=== PATIENT | male | born 1945 | race Caucasian/White ===

== ENCOUNTER 2022-02-18 14:15 | Outpatient (RCR) | payer MEDICARE, BC, SELFPAY ==
--- NOTE | 2021-10-18 15:12 | ONC.NURNOTE ---
Coordination of Care with Rad Onc Dr Teresa at 10/29 @1430 following first XRT appt at 1345 Week #1 weekly cisplat planned to start 10/30/21 patient called with appointments and called to Rad Onc/Karen Bedolla will request Dr Teresa to write orders on 10/22/21
--- NOTE | 2021-10-23 14:53 | URNOTE ---
Received request for prior auth for Cisplatin ([id number]), Fosaprepitant ([id number]) and Aloxi ([id number]). Pt has Medicare and FEP supplement. Prior auth is not required as services are based on medical necessity and follow medicare guidelines.
[2021-10-30 10:12] VITALS: BP 118/74; PULSE 64; RESP 16; TEMP 36.4; O2SAT 96
[2021-10-30 10:26] LABS: Basophils Absolute Auto 0.03 K/uL (0.00-0.30); Basophils Percent Auto 0.3 % (0.0-3.0); Eosinophils Percent Auto 3.1 % (0.0-7.0); Hematocrit 40.7 % (37.0-53.0); Immature Granulocytes Abs Auto 0.03 K/uL (0.00-0.30); Lymphocytes Percent Auto 11.1 % (20-44); Mean Corpuscular HGB Conc 32 gm/dL (32-36); Mean Corpuscular Hemoglobin 28 pg (26-34); Mean Corpuscular Volume 88 fL (80-100); Monocytes Percent Auto 13.4 % (0.0-11.0); Neutrophils Absolute Auto 7.06 K/uL (1.7-7.0); Neutrophils Percent Auto 71.8 % (42.0-72.0); Platelet Count* 380 K/uL (140-440); RDW Coefficient of Variation % 14.7 % (11.5-15.5); Red Blood Count 4.61 m/uL (4.30-5.90); White Blood Count* 9.83 K/uL (4.50-11.00)
[2021-10-30 10:31] LABS: Slide Review Reflex No
[2021-10-30 10:59] LABS: Albumin* 3.9 g/dL (3.3-5.0)
[2021-10-30 11:00] LABS: Chloride* 98 mmol/L (96-114); Potassium* 4.8 mmol/L (3.6-5.1); Sodium* 136 mmol/L (135-149)
[2021-10-30 11:02] LABS: Alanine Aminotransferase* 21 U/L (4-50); Alkaline Phosphatase* 118 U/L (40-150); Aspartate Amino Transferase* 24 U/L (12-35); Bilirubin Total* 0.3 mg/dL (0.1-1.5); Blood Urea Nitrogen* 24 mg/dL (7-30); Carbon Dioxide* 30 mmol/L (20-32); Creatinine* 1.2 mg/dL (0.5-1.5); Estimated Glomerular Filt Rate 62 ml/min; Glucose* 121 mg/dL (60-115); Magnesium* 1.9 mg/dL (1.5-2.6); Total Protein* 6.9 g/dL (6.0-8.3)
[2021-10-30 11:03] LABS: Calcium* 8.9 mg/dL (8.4-10.6)
[2021-10-30] MEDS: PALONOSETRON 0.25 MG/5 ML inj IV (12:21)
[2021-10-30] MEDS: FOSAPREPITANT 150 MG inj 150 MG in 0.9 % SODIUM CHLORIDE 250 ml 250 ML 510 MG IVPB (12:21)
[2021-10-30] MEDS: dexAMETHasone 10 MG in 0.9 % SODIUM CHLORIDE 100 ml 100 ML 404 MG IVPB (13:01)
--- NOTE | 2021-10-31 08:39 | ONC.NURNOTE ---
Called patient day after 1st chemo. He is feeling well; he is taking his antiemetics on schedule. He notes he was tired yesterday and got some sleep, and then was up in the night but is feeling well today. Reviewed to continue antiemetic schedule and anticipate fatigue as steroids wear off; pt agreeable to this.
[2021-11-06 09:25] VITALS: BP 124/77; PULSE 64; RESP 16; TEMP 36.2; O2SAT 99
[2021-11-06 09:25] LABS: Basophils Percent Auto 0.2 % (0.0-3.0); Eosinophils Percent Auto 2.8 % (0.0-7.0); Hematocrit 40.8 % (37.0-53.0); Hemoglobin* 13.2 gm/dL (13.5-17.5); Immature Granulocytes Abs Auto 0.07 K/uL (0.00-0.30); Lymphocytes Percent Auto 6.3 % (20-44); Mean Corpuscular HGB Conc 32 gm/dL (32-36); Mean Corpuscular Hemoglobin 28 pg (26-34); Mean Corpuscular Volume 86 fL (80-100); Monocytes Percent Auto 11.4 % (0.0-11.0); Neutrophils Percent Auto 78.7 % (42.0-72.0); Platelet Count* 317 K/uL (140-440); RDW Coefficient of Variation % 14.4 % (11.5-15.5); Red Blood Count 4.72 m/uL (4.30-5.90); White Blood Count* 12.68 K/uL (4.50-11.00)
[2021-11-06 09:34] LABS: Slide Review Reflex No
[2021-11-06 09:48] LABS: Albumin* 3.9 g/dL (3.3-5.0); Chloride* 97 mmol/L (96-114); Potassium* 4.1 mmol/L (3.6-5.1); Sodium* 134 mmol/L (135-149)
[2021-11-06 09:50] LABS: Creatinine* 1.1 mg/dL (0.5-1.5); Estimated Glomerular Filt Rate 69 ml/min
[2021-11-06 09:51] LABS: Alanine Aminotransferase* 19 U/L (4-50); Alkaline Phosphatase* 103 U/L (40-150); Aspartate Amino Transferase* 21 U/L (12-35); Bilirubin Total* 0.3 mg/dL (0.1-1.5); Blood Urea Nitrogen* 19 mg/dL (7-30); Carbon Dioxide* 29 mmol/L (20-32); Glucose* 138 mg/dL (60-115); Total Protein* 6.8 g/dL (6.0-8.3)
[2021-11-06 09:52] LABS: Calcium* 8.8 mg/dL (8.4-10.6)
[2021-11-06] MEDS: 0.9 % SODIUM CHLORIDE 1000 ml 1,000 ML 500 ML IV (10:51)
[2021-11-06] MEDS: PALONOSETRON 0.25 MG/5 ML inj IV (11:37)
[2021-11-06] MEDS: dexAMETHasone 10 MG in 0.9 % SODIUM CHLORIDE 100 ml 100 ML 404 MG IVPB (11:37)
[2021-11-06] MEDS: FOSAPREPITANT 150 MG inj 150 MG in 0.9 % SODIUM CHLORIDE 250 ml 250 ML 510 MG IVPB (11:58)
[2021-11-13 11:07] LABS: Basophils Absolute Auto 0.02 K/uL (0.00-0.30); Basophils Percent Auto 0.2 % (0.0-3.0); Eosinophils Absolute Auto 0.22 K/uL (0.00-0.50); Eosinophils Percent Auto 2.2 % (0.0-7.0); Hematocrit 41.6 % (37.0-53.0); Hemoglobin* 13.6 gm/dL (13.5-17.5); Immature Granulocytes Abs Auto 0.03 K/uL (0.00-0.30); Lymphocytes Percent Auto 7.1 % (20-44); Mean Corpuscular HGB Conc 33 gm/dL (32-36); Mean Corpuscular Hemoglobin 28 pg (26-34); Mean Corpuscular Volume 85 fL (80-100); Monocytes Percent Auto 15.6 % (0.0-11.0); Neutrophils Percent Auto 74.6 % (42.0-72.0); Platelet Count* 213 K/uL (140-440); RDW Coefficient of Variation % 14.7 % (11.5-15.5); Red Blood Count 4.91 m/uL (4.30-5.90); White Blood Count* 9.95 K/uL (4.50-11.00)
[2021-11-13 11:10] LABS: Slide Review Reflex No
[2021-11-13 11:12] VITALS: BP 116/72; PULSE 82; RESP 16; TEMP 36.4; O2SAT 97
[2021-11-13 11:22] LABS: Chloride* 95 mmol/L (96-114)
[2021-11-13 11:23] LABS: Albumin* 3.8 g/dL (3.3-5.0); Potassium* 4.1 mmol/L (3.6-5.1); Sodium* 131 mmol/L (135-149)
[2021-11-13 11:26] LABS: Alanine Aminotransferase* 31 U/L (4-50); Alkaline Phosphatase* 121 U/L (40-150); Aspartate Amino Transferase* 29 U/L (12-35); Bilirubin Total* 0.5 mg/dL (0.1-1.5); Blood Urea Nitrogen* 21 mg/dL (7-30); Calcium* 8.7 mg/dL (8.4-10.6); Carbon Dioxide* 30 mmol/L (20-32); Creatinine* 1.1 mg/dL (0.5-1.5); Estimated Glomerular Filt Rate 69 ml/min; Glucose* 129 mg/dL (60-115); Total Protein* 6.5 g/dL (6.0-8.3)
[2021-11-13 11:27] LABS: Magnesium* 1.5 mg/dL (1.5-2.6)
[2021-11-13 12:16] LABS: Appearance Urine Clear (Clear); Bilirubin Urine Negative (Negative); Blood Urine Negative (Negative); Color Urine Yellow (Yellow); Glucose Urine Negative (Negative); Ketones Urine Negative (Negative); Leukocyte Esterase Urine 1+ (Negative); Nitrite Urine Negative (Negative); Protein Urine Negative (Negative); Specific Gravity Urine >= 1.030 (1.000-1.030); Urobilinogen Urine 0.2 (0.2-1.0)
[2021-11-13 12:31] LABS: RBC Urine 0-2 (0-2)
[2021-11-13 12:32] LABS: Bacteria Urine Few; Squamous Epithelial Cell Urine Few (None-Few)
[2021-11-13] MEDS: PALONOSETRON 0.25 MG/5 ML inj IV (13:22)
[2021-11-13] MEDS: dexAMETHasone 10 MG in 0.9 % SODIUM CHLORIDE 100 ml 100 ML 404 MG IVPB (13:22)
[2021-11-13] MEDS: FOSAPREPITANT 150 MG inj 150 MG in 0.9 % SODIUM CHLORIDE 250 ml 250 ML 510 MG IVPB (13:44)
--- NOTE | 2021-11-13 14:14 | ONC.NURNOTE ---
Patient's magnesium trending downward, given replacement in IVF with cisplatin today. Also printed information on magnesium rich foods education from the [facility]. Education also talks about early signs of deficiency, and worsening symptoms. Patient knows to contact office if these symptoms start to occur.
[2021-11-19 10:48] LABS: Basophils Absolute Auto 0.03 K/uL (0.00-0.30); Basophils Percent Auto 0.4 % (0.0-3.0); Eosinophils Absolute Auto 0.15 K/uL (0.00-0.50); Eosinophils Percent Auto 1.8 % (0.0-7.0); Hematocrit 40.5 % (37.0-53.0); Hemoglobin* 13.4 gm/dL (13.5-17.5); Immature Granulocytes Abs Auto 0.03 K/uL (0.00-0.30); Lymphocytes Percent Auto 10.6 % (20-44); Mean Corpuscular HGB Conc 33 gm/dL (32-36); Mean Corpuscular Hemoglobin 28 pg (26-34); Mean Corpuscular Volume 84 fL (80-100); Monocytes Percent Auto 19.3 % (0.0-11.0); Neutrophils Absolute Auto 5.73 K/uL (1.7-7.0); Neutrophils Percent Auto 67.5 % (42.0-72.0); Platelet Count* 181 K/uL (140-440); RDW Coefficient of Variation % 14.8 % (11.5-15.5); Red Blood Count 4.82 m/uL (4.30-5.90); White Blood Count* 8.48 K/uL (4.50-11.00)
[2021-11-19 11:17] LABS: Albumin* 3.5 g/dL (3.3-5.0); Chloride* 93 mmol/L (96-114); Potassium* 4.6 mmol/L (3.6-5.1); Sodium* 129 mmol/L (135-149)
[2021-11-19 11:19] LABS: Bilirubin Total* 0.4 mg/dL (0.1-1.5); Carbon Dioxide* 31 mmol/L (20-32); Creatinine* 1.4 mg/dL (0.5-1.5); Estimated Glomerular Filt Rate 52 ml/min
[2021-11-19 11:20] LABS: Alanine Aminotransferase* 33 U/L (4-50); Alkaline Phosphatase* 122 U/L (40-150); Aspartate Amino Transferase* 36 U/L (12-35); Blood Urea Nitrogen* 22 mg/dL (7-30); Calcium* 8.5 mg/dL (8.4-10.6); Glucose* 161 mg/dL (60-115); Total Protein* 6.2 g/dL (6.0-8.3)
[2021-11-19 11:21] LABS: Slide Review Reflex No
[2021-11-20 10:32] VITALS: BP 102/69; PULSE 88; RESP 16; TEMP 36.4; O2SAT 98
[2021-11-20 10:47] LABS: Magnesium* 1.5 mg/dL (1.5-2.6)
--- NOTE | 2021-11-20 12:02 | ONC.NURNOTE ---
Received call from Sulma ARRIAGA from radiation oncology. Pt started on Flomax last evening for nocturia, this am pt lightheadedness with lower Bp. Not orthostatic per radiation. Pt also continues to have burning with urination and Radiation oncology are added on an additional 2 days of cipro for pt. Lineman called and spoke to Dr. Teresa to discuss if okay to treat with Cisplatin today with ongoing symptoms of UTI and being on Cipro. Pt's creatinine also 1.4. Per Dr. Teresa okay to treat with Cisplatin today, encourage fluids, pt to return on to recheck Creatinine and possible fluids. Dr. Teresa did not want to change the Emend dose with pt being on cipro.
[2021-11-20] MEDS: dexAMETHasone 10 MG in 0.9 % SODIUM CHLORIDE 100 ml 100 ML 404 MG IVPB (12:28)
[2021-11-20] MEDS: SODIUM CHLORIDE 0.9 % (FLUSH) 10 ML SYRINGE IVF (12:33)
[2021-11-20] MEDS: PALONOSETRON 0.25 MG/5 ML inj IV (12:33)
[2021-11-20] MEDS: FOSAPREPITANT 150 MG inj 150 MG in 0.9 % SODIUM CHLORIDE 250 ml 250 ML 510 MG IVPB (12:51)
[2021-11-20 16:00] VITALS: BP 117/69; PULSE 88
[2021-11-22 12:51] LABS: Chloride* 96 mmol/L (96-114); Sodium* 129 mmol/L (135-149)
[2021-11-22 12:52] LABS: Potassium* 3.9 mmol/L (3.6-5.1)
[2021-11-22 12:54] LABS: Creatinine* 1.3 mg/dL (0.5-1.5); Estimated Glomerular Filt Rate 57 ml/min
[2021-11-22 12:55] LABS: Blood Urea Nitrogen* 23 mg/dL (7-30); Carbon Dioxide* 25 mmol/L (20-32); Glucose* 110 mg/dL (60-115)
[2021-11-22 13:25] VITALS: BP 90/56; PULSE 73; RESP 16; TEMP 36.7; O2SAT 96
[2021-11-22 13:32] VITALS: BP 83/55; PULSE 90; RESP 16; TEMP 36.7
--- NOTE | 2021-11-22 15:11 | ONC.NURNOTE ---
Pt here for blood draw, possible fluids. BP low-see vitals. weight up 4 pounds since 11/20/21. Pt feels okay, denies lightheadedness, dizziness. Stopped taking flomax due to feeling lightheaded. Creatinine 1.3, down from 1.4 on 11/20/21. Discussed symptoms with Kerry Rosas APRN and decision made to hold fluids due to pt heart history and wt gain. Pt given copy of Blood pressure readings over the last 4 weeks. Pt instructed to contact primary care to determine blood pressure parameters for pt. Pt has an appt on 11/26/[address] Teresa follow up. Pt instructed to call [facility] if he has symptoms of dizziness/lightheadedness. Pt and his spouse verbalized understanding of plan of care.
[2021-11-26 09:02] LABS: Basophils Absolute Auto 0.03 K/uL (0.00-0.30); Basophils Percent Auto 0.6 % (0.0-3.0); Eosinophils Absolute Auto 0.15 K/uL (0.00-0.50); Eosinophils Percent Auto 2.8 % (0.0-7.0); Hematocrit 35.3 % (37.0-53.0); Hemoglobin* 11.6 gm/dL (13.5-17.5); Immature Granulocytes Abs Auto 0.01 K/uL (0.00-0.30); Lymphocytes Percent Auto 14.3 % (20-44); Mean Corpuscular HGB Conc 33 gm/dL (32-36); Mean Corpuscular Hemoglobin 28 pg (26-34); Mean Corpuscular Volume 84 fL (80-100); Monocytes Percent Auto 25.3 % (0.0-11.0); Neutrophils Absolute Auto 3.03 K/uL (1.7-7.0); Neutrophils Percent Auto 56.8 % (42.0-72.0); Platelet Count* 137 K/uL (140-440); RDW Coefficient of Variation % 15.6 % (11.5-15.5); Red Blood Count 4.21 m/uL (4.30-5.90); White Blood Count* 5.33 K/uL (4.50-11.00)
[2021-11-26 09:21] LABS: Slide Review Reflex No
[2021-11-26 09:23] LABS: Albumin* 3.2 g/dL (3.3-5.0); Chloride* 98 mmol/L (96-114); Potassium* 3.8 mmol/L (3.6-5.1); Sodium* 133 mmol/L (135-149)
[2021-11-26 09:25] LABS: Creatinine* 1.1 mg/dL (0.5-1.5); Estimated Glomerular Filt Rate 69 ml/min
[2021-11-26 09:26] LABS: Alanine Aminotransferase* 25 U/L (4-50); Alkaline Phosphatase* 87 U/L (40-150); Aspartate Amino Transferase* 27 U/L (12-35); Bilirubin Total* 0.4 mg/dL (0.1-1.5); Blood Urea Nitrogen* 21 mg/dL (7-30); Calcium* 7.9 mg/dL (8.4-10.6); Carbon Dioxide* 30 mmol/L (20-32); Glucose* 185 mg/dL (60-115); Magnesium* 1.1 mg/dL (1.5-2.6); Total Protein* 5.7 g/dL (6.0-8.3)
[2021-11-26] MEDS: MAGNESIUM IV 2 GM/50 ML PIGGYBACK IVPB (11:32)
[2021-12-03 08:38] LABS: Basophils Absolute Auto 0.02 K/uL (0.00-0.30); Basophils Percent Auto 0.4 % (0.0-3.0); Eosinophils Absolute Auto 0.16 K/uL (0.00-0.50); Eosinophils Percent Auto 3.5 % (0.0-7.0); Hematocrit 34.5 % (37.0-53.0); Hemoglobin* 11.2 gm/dL (13.5-17.5); Lymphocytes Percent Auto 14.6 % (20-44); Mean Corpuscular HGB Conc 33 gm/dL (32-36); Mean Corpuscular Hemoglobin 28 pg (26-34); Mean Corpuscular Volume 86 fL (80-100); Monocytes Percent Auto 26.6 % (0.0-11.0); Neutrophils Absolute Auto 2.47 K/uL (1.7-7.0); Neutrophils Percent Auto 54.9 % (42.0-72.0); Platelet Count* 124 K/uL (140-440); Red Blood Count 4.03 m/uL (4.30-5.90); White Blood Count* 4.51 K/uL (4.50-11.00)
[2021-12-03 08:39] LABS: Appearance Urine Clear (Clear); Bilirubin Urine Negative (Negative); Blood Urine Trace-intact (Negative); Color Urine Yellow (Yellow); Glucose Urine 1+ (Negative); Ketones Urine Negative (Negative); Leukocyte Esterase Urine Trace (Negative); Nitrite Urine Negative (Negative); Protein Urine Negative (Negative); Urobilinogen Urine 0.2 (0.2-1.0)
[2021-12-03 08:42] LABS: Slide Review Reflex No
[2021-12-03 08:50] LABS: RBC Urine 0-2 (0-2)
[2021-12-03 08:50] LABS: Magnesium* 1.9 mg/dL (1.5-2.6)
[2021-12-03 08:51] LABS: Bacteria Urine Few; Squamous Epithelial Cell Urine Few (None-Few)
[2021-12-03 09:26] LABS: Creatinine* 1.2 mg/dL (0.5-1.5); Estimated Glomerular Filt Rate 62 ml/min
--- NOTE | 2021-12-03 10:45 | PC.NURSE ---
Addendum entered by Pamella Ford RN 12/04/21 15:44: UC results reviewed by Kerry Rosas APRN. No further workup needed. Radiation oncology-Sulma ARRIAGA notified UC negative. Left message for pt to call back for UC results and follow up appts. Addendum entered by Pamella Ford RN 12/03/21 15:49: Mobile Manager called Sulma ARRIAGA at Radiation Oncology asking her to follow up with pt regarding radiation oncology's recommendation of starting pyridium and instructing pt on how long pt can take the pyridium. Mobile Manager will follow up on UC results. Addendum entered by Shea Cowart RN 12/03/21 15:19: Discussed case with Kerry Zheng APRN after reviewing phone notes from [facility] on 11/30/2021. In those notes, there were recommendations from the radiation oncologist to use OTC pyridium 2 tablets 3 times daily after meals. Will have the radiation RN team call pt to reinforce this recommendation. Also of note, UA/UC was done today. We will follow those results and RADHA Payne will prescribe abx as appropriate if UC positive. Original Note: Chicho is present today for labs. Upon presentation, pt reported ongoing symptoms of urinary frequency and urgency. Pt is up every hour in the night and so is not getting much sleep. UA completed. Lab results and symptoms discussed with Kerry Zheng APRN who added on a creatinine to labs. When that resulted, it was discussed and decided to involve the radiation team to manage [place] symptoms. Awaiting a call back.
== END 2022-04-27 23:59 | disposition home or self-care (01) ==
LOC: CCIC 14:15
PROVIDERS: Radiology Radiation Oncology; PCP Internal Medicine Medical Oncology; Visit Provider Internal Medicine Medical Oncology
DX: C67.9 Malignant neoplasm of bladder, unspecified (principal)
CPT/HCPCS: 36415; 80048; 80053; 81001; 81003; 81015; 82565; 83735; 85025; 87086; 87186; 96361; 96365; 96366; 96376; 96413; 99202; 99204; 99212; 99214; 99215; J1100; J1453; J2469; J3475; J7030; J7050; J7120; J9060